=== PATIENT | female | born 1940 | race Caucasian/White ===

== ENCOUNTER 2016-09-03 10:00 | Outpatient (RCR) | payer MEDICARE, BC ==
[2016-06-12 14:39] LABS: HEMATOCRIT 20.8 % (37.0-47.0); HEMOGLOBIN 7.1 g/dl (12.5-16.0)
[2016-06-15] VITALS (10 sets, daily range): BP systolic 93–119; BP diastolic 30–60; PULSE 101–113; TEMP 97.7–99
[2016-07-02 11:46] LABS: HEMATOCRIT 19.6 % (37.0-47.0); HEMOGLOBIN 6.6 g/dl (12.5-16.0)
[2016-07-03 14:53] VITALS: BP 111/41; PULSE 94; TEMP 98.1
[2016-07-03 15:08] VITALS: BP 113/47; PULSE 82; TEMP 98.7
[2016-07-03 15:38] VITALS: BP 124/55; PULSE 84; TEMP 98.8
[2016-07-03 16:37] VITALS: BP 100/68; PULSE 82; TEMP 98.8
[2016-07-13 12:39] LABS: HEMATOCRIT 20.6 % (37.0-47.0); HEMOGLOBIN 6.6 g/dl (12.5-16.0)
[2016-07-15 10:34] VITALS: BP 97/36; PULSE 96; TEMP 98
[2016-07-15 10:55] VITALS: BP 95/50; PULSE 64; TEMP 97.7
[2016-07-15 11:10] VITALS: BP 102/49; PULSE 88; TEMP 98.3
[2016-07-15 11:40] VITALS: BP 95/49; PULSE 86; TEMP 97.9
[2016-07-15 12:32] VITALS: BP 102/50; PULSE 88; TEMP 98.6
[2016-07-23 12:42] LABS: HEMOGLOBIN 6.6 g/dl (12.5-16.0)
[2016-07-24 14:15] VITALS: BP 98/48; PULSE 99; TEMP 97.6
[2016-07-24 14:32] VITALS: BP 102/48; PULSE 101; TEMP 98.2
[2016-07-24 15:02] VITALS: BP 114/43; PULSE 95; TEMP 98
[2016-07-24 15:38] VITALS: BP 107/49; PULSE 105; TEMP 98.5
[2016-07-24 16:22] VITALS: BP 116/43; PULSE 97; TEMP 98.7
[2016-08-06] VITALS (10 sets, daily range): BP systolic 100–119; BP diastolic 45–58; PULSE 81–96; TEMP 97.8–98.6
[2016-08-06 12:12] LABS: HEMATOCRIT 17.4 % (37.0-47.0); HEMOGLOBIN 5.7 g/dl (12.5-16.0)
[2016-08-20 16:08] LABS: HEMATOCRIT 20.6 % (37.0-47.0); HEMOGLOBIN 6.6 g/dl (12.5-16.0)
[2016-08-21 14:57] VITALS: BP 96/29; PULSE 87; TEMP 98.1
[2016-08-21 15:18] VITALS: BP 91/43; PULSE 63; TEMP 98
[2016-08-21 15:33] VITALS: BP 89/32; PULSE 81; TEMP 98
[2016-08-21 16:03] VITALS: BP 103/27; PULSE 84; TEMP 98.4
[2016-08-21 17:01] VITALS: BP 102/28; PULSE 79; TEMP 98.2
[2016-09-01 15:28] LABS: HEMATOCRIT 20.1 % (37.0-47.0); HEMOGLOBIN 6.4 g/dl (12.5-16.0)
[~2016-09-03] VITALS: Ht 162.6 cm; Wt 59.0 kg
[2016-09-03] VITALS (10 sets, daily range): BP systolic 93–104; BP diastolic 27–50; PULSE 70–89; TEMP 97.5–98.1
[~2016-09-03 10:00] MED LIST: ATIVAN 0.50.5 MG/TAB PO; ATIVAN 1MG T1 MG/TAB PO; AVELOX 400MG T400 MG PO; CALCIUM CALTRATE; CEFTIN500 MG PO; COLACE 100100 MG/CAP PO; COLACE100 MG PO; COMPAZINE 110 MG/TAB; COMPAZINE 110 MG/TAB PO; DIFLUCAN PO; DIFLUCAN200 MG PO; EXJADE; EXJADE PO; FRESHKOTE OP; JADENU90 MG PO; LEVAQUIN 2250 MG/TAB; LEVAQUIN 2250 MG/TAB PO; LEVAQUIN 5500 MG/TA1 PO; LOPRESSOR 225 MG/TAB PO; LOPRESSOR PO; MULTI VITAMINS1 TAB PO; NEUPOGEN300 MCG/0. SQ; NORCO 325 MG-51 TAB PO; PREPARATION H30 GM RC; PROBIOTIC-MAJOR PO; REVLIMID15 MG PO; REVLIMID5 MG PO; SENOKOT S 50 MG1 TAB PO; SOOTHE XP; SYSTANE 0.3-0.1 EACH OP; VFEND 200MG200 MG PO; VITAMIN D 400400 IU PO; ZOVIRAX 800MG800 MG PO; ZOVIRAX400 MG PO; ZOVIRAX800 MG PO; [UNRECOGNIZED DRUG - OTHER]; [UNRECOGNIZED DRUG - OTHER]
[2016-09-03] MEDS ORDERED: IMODIUM 2MG CAPS2 MG PO (11:03)
[2016-09-03] MEDS ORDERED: BENEFIBER PO (11:03)
[2016-11-26] MEDS ORDERED: SYNTHROID 0.0.025 MG PO (14:26)
== END 2016-09-13 | disposition home or self-care (01) ==
LOC: EUO
PROVIDERS: Internal Medicine; Internal Medicine Medical Oncology
DX: C92.01 Acute myeloblastic leukemia, in remission (principal); Z45.2 Encounter for adjustment and management of vascular access device
CPT/HCPCS: 86644; J1644; J7050; P9040

== ENCOUNTER 2016-12-10 13:00 | Outpatient (RCR) | payer MEDICARE, BC ==
[2016-09-16 14:49] LABS: HEMATOCRIT 22.4 % (37.0-47.0); HEMOGLOBIN 7.2 g/dl (12.5-16.0)
[2016-09-18 11:18] VITALS: BP 107/38; PULSE 78; TEMP 98
[2016-09-18 11:44] VITALS: BP 106/36; PULSE 72; TEMP 98.2
[2016-09-18 11:59] VITALS: BP 101/43; PULSE 70; TEMP 97.5
[2016-09-18 12:30] VITALS: BP 106/53; PULSE 70; TEMP 98.1
[2016-09-18 13:39] VITALS: BP 114/46; PULSE 68; TEMP 97.6
[2016-09-29 16:02] LABS: HEMATOCRIT 21.6 % (37.0-47.0); HEMOGLOBIN 7.2 g/dl (12.5-16.0)
[2016-10-01 11:52] VITALS: BP 100/27; PULSE 87; TEMP 98.1
[2016-10-01 12:10] VITALS: BP 95/35; PULSE 85; TEMP 97
[2016-10-01 12:25] VITALS: BP 100/39; PULSE 83; TEMP 97.9
[2016-10-01 12:55] VITALS: BP 98/39; PULSE 81; TEMP 98.2
[2016-10-01 13:51] VITALS: BP 101/39; PULSE 91; TEMP 97.8
[2016-10-15] VITALS (9 sets, daily range): BP systolic 99–116; BP diastolic 43–82; PULSE 78–115; TEMP 97.1–98.4
[2016-10-30] VITALS (9 sets, daily range): BP systolic 96–130; BP diastolic 39–66; PULSE 74–85; TEMP 97.2–98.8
[2016-11-12 11:11] VITALS: BP 89/46; PULSE 79; TEMP 98.3
[2016-11-12 11:26] VITALS: BP 69/46; PULSE 74; TEMP 97.4
[2016-11-12 11:40] VITALS: BP 99/26; PULSE 74; TEMP 97.6
[2016-11-12 12:07] VITALS: BP 104/41; PULSE 77; TEMP 98.2
[2016-11-12 12:50] VITALS: BP 98/45; PULSE 70; TEMP 97.5
[2016-11-26 15:09] VITALS: BP 114/45; PULSE 103; TEMP 98
[2016-11-26 15:23] VITALS: BP 106/44; PULSE 97; TEMP 98.7
[2016-11-26 15:38] VITALS: BP 96/44; PULSE 97; TEMP 98.3
[2016-11-26 16:08] VITALS: BP 110/49; PULSE 95; TEMP 98.7
[2016-11-26 16:57] VITALS: BP 112/43; PULSE 91; TEMP 98.9
[2016-12-10] VITALS (10 sets, daily range): BP systolic 90–112; BP diastolic 31–70; PULSE 59–97; TEMP 98–99.5
[~2016-12-10] VITALS: Ht 162.6 cm; Wt 56.8 kg
[~2016-12-10 13:00] MED LIST changes: +BENEFIBER PO; +IMODIUM 2MG CAPS2 MG PO; +SYNTHROID 0.0.025 MG PO
== END 2016-12-17 | disposition home or self-care (01) ==
LOC: EUO
PROVIDERS: Internal Medicine Medical Oncology
DX: C92.01 Acute myeloblastic leukemia, in remission (principal)
CPT/HCPCS: 86644; J1644; J7050; P9040

== ENCOUNTER 2017-03-18 11:00 | Outpatient (RCR) | payer MEDICARE, BC ==
[2016-12-24 11:58] VITALS: BP 97/38; PULSE 76; TEMP 98.1
[2016-12-24 12:15] VITALS: BP 94/35; PULSE 74; TEMP 97.6
[2016-12-24 12:30] VITALS: BP 92/37; PULSE 75; TEMP 97.9
[2016-12-24 13:00] VITALS: BP 97/25; PULSE 76; TEMP 98
[2016-12-24 14:02] VITALS: BP 98/46; PULSE 70; TEMP 97.8
[2017-01-07] VITALS (9 sets, daily range): BP systolic 98–113; BP diastolic 37–64; PULSE 78–107; TEMP 97.5–98.7
[2017-01-20 15:17] VITALS: BP 108/41; PULSE 79; TEMP 98.4
[2017-01-20 15:32] VITALS: BP 102/44; PULSE 77; TEMP 98.4
[2017-01-20 16:02] VITALS: BP 100/33; PULSE 90; TEMP 98.3
[2017-01-20 17:01] VITALS: BP 111/43; PULSE 67; TEMP 98.8
[2017-01-20 17:29] VITALS: BP 111/42; PULSE 72; TEMP 98.8
[2017-02-04 10:44] VITALS: BP 95/31; PULSE 89; TEMP 98.1
[2017-02-04 10:59] VITALS: BP 92/39; PULSE 101; TEMP 98.4
[2017-02-04 11:29] VITALS: BP 106/39; PULSE 90; TEMP 97.7
[2017-02-04 12:19] VITALS: BP 102/44; PULSE 83; TEMP 97.4
[2017-02-19] VITALS (9 sets, daily range): BP systolic 94–109; BP diastolic 33–42; PULSE 63–102; TEMP 97.8–98.5
[2017-03-04 14:20] VITALS: BP 92/39; PULSE 80; TEMP 98.3
[2017-03-04 14:40] VITALS: BP 93/43; PULSE 79; TEMP 97.5
[2017-03-04 14:55] VITALS: BP 99/34; PULSE 85; TEMP 97.1
[2017-03-04 15:25] VITALS: BP 102/45; PULSE 78; TEMP 98
[2017-03-04 16:25] VITALS: BP 102/42; PULSE 70; TEMP 98.1
[~2017-03-18] VITALS: Ht 162.6 cm; Wt 56.8 kg
[2017-03-18] VITALS (9 sets, daily range): BP systolic 96–125; BP diastolic 27–43; PULSE 76–83; TEMP 97.5–98.2
== END 2017-03-22 ==
LOC: EUO
DX: C92.01 Acute myeloblastic leukemia, in remission (principal)
CPT/HCPCS: J0690; J1644; J2250; J2704; J3010; J7050; P9040

== ENCOUNTER 2017-05-27 12:00 | Outpatient (RCR) | payer MEDICARE, BC ==
[2017-03-31 14:20] VITALS: BP 78/41; PULSE 101; TEMP 97.4
[2017-03-31 14:35] VITALS: BP 92/34; PULSE 89; TEMP 98.7
[2017-03-31 14:50] VITALS: BP 95/31; PULSE 99; TEMP 98
[2017-03-31 15:20] VITALS: BP 105/33; PULSE 109; TEMP 98.1
[2017-03-31 16:15] VITALS: BP 109/50; PULSE 98; TEMP 98
[2017-04-15] VITALS (10 sets, daily range): BP systolic 94–110; BP diastolic 26–48; PULSE 70–105; TEMP 98–98.9
[2017-04-30] VITALS (9 sets, daily range): BP systolic 102–115; BP diastolic 40–60; PULSE 83–102; TEMP 97.4–98.2
[2017-05-14 12:35] VITALS: BP 110/38; PULSE 73; TEMP 98.1
[2017-05-14 12:55] VITALS: BP 110/35; PULSE 77; TEMP 97.5
[2017-05-14 13:10] VITALS: BP 91/37; PULSE 74; TEMP 98.2
[2017-05-14 13:40] VITALS: BP 91/26; PULSE 77; TEMP 98.3
[2017-05-14 14:40] VITALS: BP 97/35; PULSE 70; TEMP 98.3
[~2017-05-27] VITALS: Ht 162.6 cm; Wt 57.0 kg
[2017-05-27 12:45] VITALS: BP 109/43; PULSE 88; TEMP 98.2
[2017-05-27 13:08] VITALS: BP 101/35; PULSE 88; TEMP 99
[2017-05-27 13:23] VITALS: BP 102/31; PULSE 88; TEMP 98.6
[2017-05-27 13:53] VITALS: BP 99/39; PULSE 82; TEMP 98
[2017-05-27 14:39] VITALS: BP 94/35; PULSE 82; TEMP 98.3
== END 2017-05-27 15:00 | disposition home or self-care (01) ==
LOC: EUO 12:00
DX: C92.01 Acute myeloblastic leukemia, in remission (principal)
CPT/HCPCS: J1644; J7050; P9040